=== PATIENT | male | born 1990 ===

== ENCOUNTER 2022-02-24 16:30 | Inpatient (IN) ==
[2022-02-24 17:27] LABS: Basophils % 0.3 %; Eosinophils # 0.1 K/mcL (0.0-0.6); Eosinophils % 1.2 %; Hematocrit 44.1 % (37.5-50.1); Hemoglobin 14.8 g/dL (12.9-16.9); Immature Granulocytes % 0.2 % (0-4); Lymphocytes # 1.7 K/mcL (0.6-4.6); Lymphocytes % 25.7 %; Mean Corpuscular HGB Conc 33.6 g/dL (31.6-35.5); Mean Corpuscular Hemoglobin 29.1 pg (28.0-33.3); Mean Corpuscular Volume 86.8 fL (83.0-100.0); Monocytes # 0.5 K/mcL (0.0-1.3); Monocytes % 7.5 %; Neutrophils # 4.3 K/mcL (1.6-8.9); Platelet Count 271 K/mcL (140-400); Red Blood Count 5.08 M/mcL (4.19-5.50); Red Cell Distribution Width 12.2 % (11.5-14.5); Segmented Neutrophils % 65.1 %; White Blood Count 6.7 K/mcL (4.3-11.1)
[2022-02-24 17:36] LABS: Acetaminophen < 10 mcg/mL (10-20); BUN/Creatinine Ratio 13 (6-26); Blood Urea Nitrogen 15 mg/dL (6-20); Calcium 9.6 mg/dL (8.6-10.3); Carbon Dioxide 30 mEq/L (23-29); Chloride 106 mEq/L (98-107); Ethanol < 10 mg/dL (Less than 10); Glucose 69 mg/dL (70-105); Osmolality,Calculated 291 (280-300); Potassium 3.8 mEq/L (3.5-5.1); Salicylate < 2.5 mg/dL (15.0-30.0); Sodium 141 mEq/L (136-145); eGFR For African Americans > 60 (> 60); eGFR For Non-African Americans > 60 (> 60)
[2022-02-24 17:37] LABS: Bilirubin,Urine Negative (Negative); Blood,Urine Negative (Negative); Clarity,Urine Clear (Clear); Color,Urine Yellow (Yellow); Glucose,Urine (UA) Normal (Normal); Ketones,Urine Negative (Negative); Leukocyte Esterase,Urine Trace (Negative); Mucus,Urine Moderate per lpf (None-Few); Nitrite,Urine Negative (Negative); Protein,Urine 30 mg/dL (Neg-Trace); Specific Gravity,Urine > 1.030 (1.010-1.025); Urobilinogen,Urine Normal (Normal); WBC,Urine 0-3 per hpf (0-3)
[2022-02-24 17:45] LABS: Amphetamine Screen,Urine Negative ng/mL (Cutoff=1000); Barbiturate Screen,Urine Negative ng/mL (Cutoff=200); Benzodiazepines Screen,Urine Negative ng/mL (Cutoff=200); Cannabinoid Screen,Urine Negative ng/mL (Cutoff = 50); Cocaine Screen,Urine Negative ng/mL (Cutoff= 300); Opiate Screen,Urine Negative ng/mL (Cutoff=300); Phencyclidine Screen,Urine Negative ng/mL (Cutoff=25)
[2022-02-24 23:05] LABS: Influenza A PCR Negative (Negative); Influenza B PCR Negative (Negative); Resp. Syncytial Virus PCR Negative (Negative)
[2022-02-24 23:06] LABS: SARS-CoV-2 by PCR (In House) Negative (Negative)
[2022-02-24] MEDS ORDERED: Ibuprofen 400 MG TABLET PO PRN (23:15)
[2022-02-24] MEDS ORDERED: haloperidoL 5 MG TABLET PO PRN (23:15)
[2022-02-24] MEDS ORDERED: traZODone 50 MG TABLET PO PRN (23:15)
[2022-02-24] MEDS ORDERED: *HR* LORazepam 1 MG TABLET PO PRN (23:15)
[2022-02-24] MEDS ORDERED: *HR* LORazepam 2 MG/ML VIAL IM PRN (23:15)
[2022-02-24] MEDS ORDERED: Haloperidol Lactate 5 MG/ML VIAL IM PRN (23:15)
[2022-02-25] MEDS ORDERED: MOM Conc 10 ML UD.LIQ PO PRN (08:04)
[2022-02-25] MEDS ORDERED: Mag Hydrox/Al Hydrox/Simeth 30 ML UDC PO PRN (08:04)
[2022-02-25] MEDS: hydrOXYzine pamoate 25 MG CAPSULE PO PRN (20:28)
[2022-02-25] MEDS: QUEtiapine Fumarate 100 MG TABLET PO SCH (20:28)
[2022-02-26] MEDS: QUEtiapine Fumarate 100 MG TABLET PO SCH (21:46)
[2022-02-26] MEDS: hydrOXYzine pamoate 25 MG CAPSULE PO PRN (21:46)
[2022-02-27] MEDS: QUEtiapine Fumarate 100 MG TABLET PO SCH (21:15)
[2022-02-28] MEDS: BuPROPion XL (24 HR) 150 MG TABLET PO SCH (16:03)
[2022-02-28] MEDS: QUEtiapine Fumarate 100 MG TABLET PO SCH (20:42)
[2022-03-01] MEDS: BuPROPion XL (24 HR) 150 MG TABLET PO SCH (08:25)
[2022-03-01 09:34] VITALS: O2SAT 98
[2022-03-01] MEDS ORDERED: QUEtiapine Fumarate 100 MG TABLET PO SCH (21:00)
[2022-03-02] MEDS: BuPROPion XL (24 HR) 150 MG TABLET PO SCH (08:46)
[2022-03-02 08:52] VITALS: BP 133/87; PULSE 80; TEMP 98.4
== END 2022-03-02 12:20 | disposition home or self-care (01) | DRG 751 ==
LOC: EMEROOARM 16:30 → 1ANU 23:20
PROVIDERS: ADMIT Psychiatry & Neurology Psychiatry; ATTEND Psychiatry & Neurology Psychiatry